=== PATIENT | male | born 1955 | race Caucasian/White ===

== ENCOUNTER 2017-12-20 11:22 | Emergency (ER) | payer OTHER ==
[~2017-12-20] VITALS: Ht 167.6 cm; Wt 78.2 kg
[~2017-12-20 11:22] MED LIST: ACYCLOVIR800 MG PO; ADLT ASA LOW81 MG PO; BC HEADACH1 OR; DENIES CURRENT MEDS; DESYREL50 MG OR; EFFEXOR75 MG OR; FLEXERIL PO; FLEXERIL10 MG PO; FLOMAX0.4 M1 PO; GEODON40 MG OR; IBUPROFEN200 MG OR; LIBRIUM25 M1 PO; METO50TA52 PO; NAPROSYN500 MG OR; ONDANSETRON4 MG PO; PREVACID30 M2 PO; PRILOSEC20 MG OR; PT DENIES; SOMA350 MG OR; TRAMADOL HCL50 MG PO; ULTRAM50 M1 PO; ZOFRAN ODT4 MG OR; [UNRECOGNIZED DRUG - REMARK]
[2017-12-20] MEDS ORDERED: LIPITOR20 MG PO (11:55)
[2017-12-20] MEDS ORDERED: PANTOPRAZOLE SO40 MG PO (11:55)
[2017-12-20] MEDS ORDERED: ZESTRIL40 MG PO (11:55)
[2017-12-20] MEDS ORDERED: AMLODIPINE5 MG PO (11:55)
[2017-12-20] MEDS ORDERED: METFORMIN500 MG PO (11:56)
[2017-12-20 12:58] VITALS: BP 135/103
[2017-12-20 13:23] LABS: HEMATOCRIT 39.1 % (39.0-50.0); HEMOGLOBIN 13.3 g/dl (14.0-18.0); IMMATURE GRANULOCYTES 0.2 % (0.0-5.0); MEAN CELL VOLUME 92.9 fL CALC (80.0-100.0); MEAN CORPUSCULAR HGB 31.6 pG CALC (26.0-32.0); NEUT# 6.44 thou/uL (1.82-7.42); RED BLOOD COUNT 4.21 mill/uL (4.70-6.10); RED CELL DISTRI WIDTH 13.2 % (11.5-15.5)
[2017-12-20 13:36] LABS: BUN 14 mg/dL (8-23); BUN/CREATININE RATIO 16 (12-20 (CALC)); CARBON DIOXIDE 24 mmol/l (22-30); CHLORIDE 105 mmol/l (95-108); CREATININE 0.9 mg/dL (0.7-1.3); GFR > 60 ML/MIN (>=60 (CALC)); GFR FOR AFR.AMER. > 60 ML/MIN (>=60 (CALC)); SODIUM 142 mmol/l (137-146)
[2017-12-20 13:37] LABS: ANION GAP 17 (6-22 (CALC)); POTASSIUM 4.3 mmol/l (3.5-5.1)
== END 2017-12-20 16:49 | disposition short-term general hospital (02) ==
LOC: ED 11:22
PROVIDERS: Family Medicine
DX: T18.9XXA Foreign body of alimentary tract, part unspecified, initial encounter (principal); X58.XXXA Exposure to other specified factors, initial encounter; Y93.9 Activity, unspecified; Y92.009 Unspecified place in unspecified non-institutional (private) residence as the place of occurrence of the external cause; F17.210 Nicotine dependence, cigarettes, uncomplicated; R10.13 Epigastric pain
CPT/HCPCS: J1610

== ENCOUNTER 2020-10-01 14:05 | Emergency (ER) | payer MEDICAID ==
[~2020-10-01] VITALS: Ht 167.6 cm; Wt 81.8 kg
[~2020-10-01 14:05] MED LIST changes: +AMLODIPINE5 MG PO; +LIPITOR20 MG PO; +METFORMIN500 MG PO; +PANTOPRAZOLE SO40 MG PO; +ZESTRIL40 MG PO
[2020-10-01 15:54] LABS: URINE BILIRUBIN - DIPSTICK NEGATIVE (NEGATIVE); URINE BLOOD DIPSTICK TRACE-LYSED (NEGATIVE); URINE COLOR YELLOW; URINE GLUCOSE - DIPSTICK NEGATIVE (NEGATIVE); URINE KETONE NEGATIVE (NEGATIVE); URINE LEUK ESTERASE NEGATIVE (NEGATIVE); URINE PROTEIN - DIPSTICK NEGATIVE (NEG-TRACE); URINE UROBILINOGEN - DIPSTICK 0.2 E.U./dL (0.2)
[2020-10-01 15:57] LABS: URINE NITRITE - DIPSTICK NEGATIVE (Negative)
[2020-10-01 16:27] VITALS: BP 148/65
== END 2020-10-01 16:30 | disposition left against medical advice (07) ==
LOC: ED 14:05
PROVIDERS: Emergency Medicine
DX: R10.13 Epigastric pain (principal); E11.9 Type 2 diabetes mellitus without complications; I10 Essential (primary) hypertension; E78.5 Hyperlipidemia, unspecified; F17.210 Nicotine dependence, cigarettes, uncomplicated; Z87.11 Personal history of peptic ulcer disease; Z79.84 Long term (current) use of oral hypoglycemic drugs; Z91.19 Patient's noncompliance with other medical treatment and regimen